=== PATIENT | male | born 1940 | race Caucasian/White ===

== ENCOUNTER → 2019-07-12 08:32 | Outpatient (BNVA) | payer MEDICARE, SELFPAY | PROVIDERS: Family Provider Internal Medicine; PCP Internal Medicine; Visit Provider Anesthesiology | DX: G89.29 Other chronic pain (principal); M54.41 Lumbago with sciatica, right side; M54.42 Lumbago with sciatica, left side; M51.36 Other intervertebral disc degeneration, lumbar region; M47.817 Spondylosis without myelopathy or radiculopathy, lumbosacral region; M54.2 Cervicalgia; M25.511 Pain in right shoulder; M25.512 Pain in left shoulder; M19.90 Unspecified osteoarthritis, unspecified site; M25.569 Pain in unspecified knee; M79.7 Fibromyalgia | CPT/HCPCS: 99214 ==

== ENCOUNTER → 2019-09-06 10:50 | Outpatient (BNVA) | payer MEDICARE, MEDICAID, SELFPAY | PROVIDERS: Family Provider Internal Medicine; PCP Internal Medicine; Visit Provider Anesthesiology | DX: G89.29 Other chronic pain (principal); M47.817 Spondylosis without myelopathy or radiculopathy, lumbosacral region; M51.36 Other intervertebral disc degeneration, lumbar region; M25.569 Pain in unspecified knee; M54.2 Cervicalgia; M25.511 Pain in right shoulder; M25.512 Pain in left shoulder; Z79.891 Long term (current) use of opiate analgesic | CPT/HCPCS: 99214 ==

== ENCOUNTER → 2020-01-02 10:33 | Outpatient (BNVA) | payer MEDICARE, MEDICAID, SELFPAY | PROVIDERS: Family Provider Internal Medicine; PCP Internal Medicine; Visit Provider Nurse Practitioner | DX: G89.29 Other chronic pain (principal); M54.41 Lumbago with sciatica, right side; M54.42 Lumbago with sciatica, left side; Z79.891 Long term (current) use of opiate analgesic | CPT/HCPCS: 99213 ==

== ENCOUNTER → 2020-02-27 14:39 | Outpatient (BNVA) | payer MEDICARE, MEDICAID, SELFPAY | PROVIDERS: Family Provider Internal Medicine; PCP Internal Medicine; Visit Provider Anesthesiology | DX: G89.29 Other chronic pain (principal); M54.42 Lumbago with sciatica, left side; M54.41 Lumbago with sciatica, right side; M47.817 Spondylosis without myelopathy or radiculopathy, lumbosacral region; M51.36 Other intervertebral disc degeneration, lumbar region; M54.2 Cervicalgia; M19.90 Unspecified osteoarthritis, unspecified site; M25.569 Pain in unspecified knee; Z79.891 Long term (current) use of opiate analgesic | CPT/HCPCS: 99214 ==

== ENCOUNTER → 2020-05-03 11:10 | Outpatient (BNVA) | payer MEDICARE, MEDICAID, SELFPAY | PROVIDERS: Family Provider Internal Medicine; PCP Internal Medicine; Visit Provider Anesthesiology | DX: G89.29 Other chronic pain (principal); M54.41 Lumbago with sciatica, right side; M54.42 Lumbago with sciatica, left side; M47.817 Spondylosis without myelopathy or radiculopathy, lumbosacral region; M51.36 Other intervertebral disc degeneration, lumbar region; M54.2 Cervicalgia; Z79.891 Long term (current) use of opiate analgesic | CPT/HCPCS: 99214 ==

== ENCOUNTER → 2020-07-12 10:24 | Outpatient (BNVA) | payer MEDICARE, MEDICAID, SELFPAY | PROVIDERS: Family Provider Internal Medicine; PCP Internal Medicine; Visit Provider Nurse Practitioner | DX: G89.29 Other chronic pain (principal); M51.36 Other intervertebral disc degeneration, lumbar region; M54.41 Lumbago with sciatica, right side; M54.42 Lumbago with sciatica, left side; M47.817 Spondylosis without myelopathy or radiculopathy, lumbosacral region; M54.2 Cervicalgia; M25.511 Pain in right shoulder; M25.512 Pain in left shoulder; F17.200 Nicotine dependence, unspecified, uncomplicated; Z79.891 Long term (current) use of opiate analgesic; Z71.6 Tobacco abuse counseling | CPT/HCPCS: 99215 ==

== ENCOUNTER → 2020-09-10 09:57 | Outpatient (BNVA) | payer MEDICARE, MEDICAID, SELFPAY | PROVIDERS: Family Provider Internal Medicine; PCP Internal Medicine; Visit Provider Nurse Practitioner | DX: G89.29 Other chronic pain (principal); M54.41 Lumbago with sciatica, right side; M54.42 Lumbago with sciatica, left side; M51.36 Other intervertebral disc degeneration, lumbar region; M47.817 Spondylosis without myelopathy or radiculopathy, lumbosacral region; M54.2 Cervicalgia; M25.511 Pain in right shoulder; M25.512 Pain in left shoulder; M25.569 Pain in unspecified knee; F17.200 Nicotine dependence, unspecified, uncomplicated; Z79.891 Long term (current) use of opiate analgesic; Z71.6 Tobacco abuse counseling | CPT/HCPCS: 99214 ==

== ENCOUNTER → 2020-10-08 09:33 | Outpatient (BNVA) | payer MEDICARE, MEDICAID, SELFPAY | PROVIDERS: Family Provider Internal Medicine; PCP Internal Medicine; Visit Provider Anesthesiology | DX: G89.29 Other chronic pain (principal); M54.41 Lumbago with sciatica, right side; M54.42 Lumbago with sciatica, left side; M51.36 Other intervertebral disc degeneration, lumbar region; M47.817 Spondylosis without myelopathy or radiculopathy, lumbosacral region; M54.2 Cervicalgia; M25.569 Pain in unspecified knee; M19.90 Unspecified osteoarthritis, unspecified site; M25.511 Pain in right shoulder; M25.512 Pain in left shoulder; Z79.891 Long term (current) use of opiate analgesic | CPT/HCPCS: 99214 ==

== ENCOUNTER → 2020-12-04 09:37 | Outpatient (BNVA) | payer MEDICARE, MEDICAID, SELFPAY | PROVIDERS: Family Provider Internal Medicine; PCP Internal Medicine; Visit Provider Nurse Practitioner | DX: G89.29 Other chronic pain (principal); M47.817 Spondylosis without myelopathy or radiculopathy, lumbosacral region; M51.36 Other intervertebral disc degeneration, lumbar region; M79.7 Fibromyalgia; M25.569 Pain in unspecified knee; M54.2 Cervicalgia; M25.511 Pain in right shoulder; M25.512 Pain in left shoulder; F17.210 Nicotine dependence, cigarettes, uncomplicated; Z79.891 Long term (current) use of opiate analgesic; Z71.6 Tobacco abuse counseling | CPT/HCPCS: 99214 ==

== ENCOUNTER → 2021-01-01 09:38 | Outpatient (BNVA) | payer MEDICARE, MEDICAID, SELFPAY | PROVIDERS: Family Provider Internal Medicine; PCP Internal Medicine; Visit Provider Anesthesiology | DX: G89.29 Other chronic pain (principal); M54.41 Lumbago with sciatica, right side; M54.42 Lumbago with sciatica, left side; M47.817 Spondylosis without myelopathy or radiculopathy, lumbosacral region; M51.36 Other intervertebral disc degeneration, lumbar region; M54.2 Cervicalgia; M19.90 Unspecified osteoarthritis, unspecified site; F17.210 Nicotine dependence, cigarettes, uncomplicated; Z79.891 Long term (current) use of opiate analgesic | CPT/HCPCS: 99214 ==

== ENCOUNTER → 2021-03-05 12:35 | Outpatient (BNVA) | payer MEDICARE, MEDICAID, SELFPAY | PROVIDERS: Family Provider Internal Medicine; PCP Internal Medicine; Visit Provider Anesthesiology | DX: G89.29 Other chronic pain (principal); M54.41 Lumbago with sciatica, right side; M54.42 Lumbago with sciatica, left side; M47.817 Spondylosis without myelopathy or radiculopathy, lumbosacral region; M51.36 Other intervertebral disc degeneration, lumbar region; M19.90 Unspecified osteoarthritis, unspecified site; M54.2 Cervicalgia; M25.569 Pain in unspecified knee; F17.210 Nicotine dependence, cigarettes, uncomplicated; Z79.891 Long term (current) use of opiate analgesic | CPT/HCPCS: 99214 ==